=== PATIENT | male | born 1935 | race Caucasian/White ===

== ENCOUNTER 2017-03-20 15:10 | Emergency (ER) | payer MEDICARE ==
[~2017-03-20] VITALS: Ht 182.9 cm; Wt 96.0 kg
[~2017-03-20 15:10] MED LIST: APIX5TAB PO; BUME2TAB PO; CORE25TA PO; LOSA50TA PO; OMEP20CA5 PO
[2017-03-20 15:13] VITALS: BP 139/74; PULSE 91; RESP 16; TEMP 99.8; O2SAT 95
[2017-03-20] MEDS ORDERED: BUME2TAB PO (16:08)
[2017-03-20] MEDS ORDERED: OMEP20TA93 PO (16:08)
[2017-03-20] MEDS ORDERED: BENZ1CAP54 PO (16:08)
[2017-03-20] MEDS ORDERED: LOSA50TA PO (16:08)
[2017-03-20] MEDS ORDERED: CARV12.52 PO (16:08)
[2017-03-20] MEDS ORDERED: ACETAMINOPHEN 325 MG TAB PO ONE (16:15)
[2017-03-20] MEDS ORDERED: SODIUM CHLOR 0.9% 1000 ML INJ 1,000 ML IV ONE (16:15)
[2017-03-20] MEDS ORDERED: ONDANSETRON HCL 4 MG/2 ML VIAL IV PUSH ONE (16:15)
--- NOTE | 2017-03-20 16:54 | RADRPT ---
EXAM DATE/TIME: 03/20/2017 16:23 [facility] COMPARISON: No previous studies available for comparison. INDICATIONS : Flu like symptoms- Ear ache. MEDICAL HISTORY : None. SURGICAL HISTORY : Pacemaker. ENCOUNTER: Initial ACUITY: 4 - 6 days PAIN SCORE: 0/10 LOCATION: Bilateral chest FINDINGS: Single AP view of the chest. AICD in place. The lungs are clear. Cardiac silhouette upper limits of n ormal. No evidence of pleural effusion or pneumothorax. CONCLUSION: Cardiac silhouette upper limits of normal. No acute cardiopulmonary disease ident ified. Roger Patterson MD on March 20, 2017 at 16:52 Board Certified Radiologist. This report was verified electronically.
[2017-03-20 16:59] LABS: AUTOMATED NEUTROPHIL # 6.4 TH/MM3 (1.8-7.7); BASOPHIL # 0.1 TH/MM3 (0-0.2); BASOPHIL % 1.9 % (0.0-2.0); EOSINOPHIL % 0.4 % (0.0-4.0); HEMATOCRIT 43.8 % (39.0-51.0); HEMOGLOBIN 13.8 GM/DL (13.0-17.0); LYMPH % 3.9 % (9.0-44.0); LYMPHOCYTE # 0.3 TH/MM3 (1.0-4.8); MEAN CELL VOLUME 90.7 FL (80.0-100.0); MEAN CORPUSCULAR HEMOGLOBIN 28.7 PG (27.0-34.0); MEAN CORPUSCULAR HGB CONC 31.6 % (32.0-36.0); MEAN PLATELET VOLUME 10.8 FL (7.0-11.0); MONO % 11.1 % (0.0-8.0); MONOCYTE # 0.9 TH/MM3 (0-0.9); NEUT % 82.7 % (16.0-70.0); PLATELET COUNT 110 TH/MM3 (150-450); RED BLOOD COUNT 4.83 MIL/MM3 (4.50-5.90); WHITE BLOOD COUNT 7.8 TH/MM3 (4.0-11.0)
[2017-03-20 17:15] LABS: CHLORIDE 103 MEQ/L (98-107); SODIUM (NA) 140 MEQ/L (136-145)
[2017-03-20 17:19] LABS: CALCIUM 8.8 MG/DL (8.5-10.1)
[2017-03-20 17:20] LABS: ALBUMIN 3.8 GM/DL (3.4-5.0); BICARBONATE 29.5 MEQ/L (21.0-32.0); BLOOD UREA NITROGEN 18 MG/DL (7-18)
[2017-03-20 17:21] LABS: GLUCOSE,RANDOM 114 MG/DL (74-106)
[2017-03-20 17:23] LABS: ALT (GPT) 20 U/L (12-78); AST (GOT) 20 U/L (15-37); GLOMERULAR FILTRATION RATE 71 ML/MIN (>89)
[2017-03-20 17:24] LABS: TOTAL BILIRUBIN ADULT 1.2 MG/DL (0.2-1.0); TOTAL PROTEIN 7.9 GM/DL (6.4-8.2)
[2017-03-20 17:26] LABS: ALKALINE PHOSPHATASE 81 U/L (45-117)
[2017-03-20] MEDS ORDERED: PSEU1TAB17 PO (17:28)
[2017-03-20] MEDS ORDERED: TUSSSUS2 PO (17:28)
--- NOTE | 2017-03-20 17:28 | PD ---
HPI . Earache Chief Complaint: ENT Complaint Time Seen by Provider: 15:55 Travel History International Travel<30 days: No Contact w/Intl Traveler<30days: No Traveled to known affect area: No History of Present Illness HPI History is obtained from the patient and his . He presents complaining with a one-week history of cold. He states that he developed right ear pain today along with a subjective fever. He states that he has been vomiting and that he has been coughing and that he is too weak to walk. He subsequently presented to us for evaluation treatment. He has been taking an over-the- counter antihistamine for the last week without relief of his symptoms. PFSH Past Medical History Asthma: No Atrial Fibrillation: Yes (INTERMITTENT) Anxiety: No Depression: No Heart Rhythm Problems: Yes Cancer: Yes (skin cancers) Cardiovascular Problems: Yes (AFIB, CARDIAC ARREST YEARS AGO, NOW HAS PACER/ AICD) High Cholesterol: Yes (ON MEDICATION) Chest Pain: No Congestive Heart Failure: No COPD: No Cerebrovascular Accident: No Diabetes: No Endocrine: No Gastrointestinal Disorders: Yes (GALLSTONES, ACID REFLUX) GERD: Yes Glaucoma: No Genitourinary: No Headaches: Yes Hepatitis: No Hiatal Hernia: No Hypertension: Yes Immune Disorder: No Medical other: No Musculoskeletal: Yes (ARTHRITIS, BACK PAIN) Neurologic: No Psychiatric: No Reproductive: No Respiratory: No Migraines: No Sleep Apnea: No Thyroid Disease: No Ulcer: No PNEUMOCCOCAL Vaccine (Year): 1 Past Surgical History Abdominal Surgery: No AICD: Yes (MEDTRONIC) Cardiac Surgery: Yes (CARDIAC CATH 05/05/11) Ear Surgery: No Endocrine Surgery: No Eye Surgery: Yes (gabrielle cataract surgery) Genitourinary Surgery: No Joint Replacement: Yes (LT PARTIAL KNEE) Neurologic Surgery: No Oral Surgery: Yes (TONSILLECTOMY) Pacemaker: Yes (MEDTRONIC) Thoracic Surgery: No Other Surgery: Yes (PACEMAKER 05/05/11) Social History Alcohol Use: Yes (occ) Tobacco Use: No (quit 25 years) Substance Use: No Allergies-Medications (Allergen,Severity, Reaction): Coded Allergies: No Known Allergies (Verified Adverse Reaction, Unknown, 03/20/17) Reported Meds & Prescriptions Reported Meds & Active Scripts Active Tussionex Pennkinetic Ext 12 HR Liq (Hydrocodone-Chlorpheniramine 12 HR Liq) 10- 8 Mg/5 Ml Susp 5 Ml PO Q12H PRN Pseudoephedrine ER 12 HR (Pseudoephedrine HCl) 120 Mg Tab 120 Mg PO BID Reported Benzonatate 100 Mg Cap 100 Mg PO TID PRN Bumetanide 2 Mg Tab 2 Mg PO DAILY Omeprazole 20 Mg Tab 20 Mg PO DAILY Carvedilol 12.5 Mg Tab 12.5 Mg PO BID Losartan (Losartan Potassium) 50 Mg Tab 50 Mg PO DAILY Review of Systems Except as stated in HPI: all other systems reviewed are Neg General / Constitutional: Positive: Fever, Chills HENT: Positive: Congestion, Earache Respiratory: Positive: Cough Gastrointestinal: Positive: Nausea, Vomiting Neurologic: Positive: Weakness Physical Exam Narrative Vital Signs Date Time Temp Pulse Resp B/P (MAP) Pulse Ox O2 Delivery O2 Flow Rate FiO2 03/20/17 15:13 99.8 91 16 139/74 (95) 95 GENERAL: Awake and alert. He does not look like he feels very well. SKIN: warm/dry. Pale. HEAD: Normocephalic. Atraumatic. EYES: Pupils equal and round. No scleral icterus. No injection or drainage. ENT: No nasal bleeding or discharge. Mucous membranes pink and moist. TMs are shiny mckeon with good light reflexes bilaterally. Oropharynx has no erythema. NECK: Trachea midline. Full range of motion without pain. No cervical lymphadenopathy. CARDIOVASCULAR: Regular rate and rhythm. Heart sounds are normal. RESPIRATORY: No accessory muscle use. Clear to auscultation. Breath sounds equal bilaterally. GASTROINTESTINAL: Abdomen soft. Nontender. Bowel sounds present. Nondistended. MUSCULOSKELETAL: No obvious deformities. NEUROLOGICAL: Awake and alert. No obvious cranial nerve deficits. Motor grossly within normal limits. Normal speech. PSYCHIATRIC: Appropriate mood and affect; insight and judgment normal. Data Data Last Documented VS Vital Signs Date Time Temp Pulse Resp B/P (MAP) Pulse Ox O2 Delivery O2 Flow Rate FiO2 03/20/17 15:13 99.8 91 16 139/74 (95) 95 Orders Orders Sepsis Workup Initiated (03/20/17 ) Complete Blood Count With Diff (03/20/17 16:11) Comprehensive Metabolic Panel (03/20/17 16:11) Lactic Acid Sepsis Protocol (03/20/17 16:11) Influenzae A/B Antigen (03/20/17 16:11) Blood Culture (03/20/17 16:11) Chest, Single Ap (03/20/17 16:11) Iv Access Insert/Monitor (03/20/17 16:11) Acetaminophen (Tylenol) (03/20/17 16:15) Ondansetron Inj (Zofran Inj) (03/20/17 16:15) Sodium Chlor 0.9% 1000 Ml Inj (Ns 1000 M (03/20/17 16:15) Labs Laboratory Tests Test 03/20/17 16:25 White Blood Count 7.8 TH/MM3 Red Blood Count 4.83 MIL/MM3 Hemoglobin 13.8 GM/DL Hematocrit 43.8 % Mean Corpuscular Volume 90.7 FL Mean Corpuscular Hemoglobin 28.7 PG Mean Corpuscular Hemoglobin Concent 31.6 % Red Cell Distribution Width 15.0 % Platelet Count 110 TH/MM3 Mean Platelet Volume 10.8 FL Neutrophils (%) (Auto) 82.7 % Lymphocytes (%) (Auto) 3.9 % Monocytes (%) (Auto) 11.1 % Eosinophils (%) (Auto) 0.4 % Basophils (%) (Auto) 1.9 % Neutrophils # (Auto) 6.4 TH/MM3 Lymphocytes # (Auto) 0.3 TH/MM3 Monocytes # (Auto) 0.9 TH/MM3 Eosinophils # (Auto) 0.0 TH/MM3 Basophils # (Auto) 0.1 TH/MM3 CBC Comment DIFF FINAL Differential Comment Blood Urea Nitrogen 18 MG/DL Creatinine 1.00 MG/DL Random Glucose 114 MG/DL Total Protein 7.9 GM/DL Albumin 3.8 GM/DL Calcium Level 8.8 MG/DL Alkaline Phosphatase 81 U/L Aspartate Amino Transf (AST/SGOT) 20 U/L Alanine Aminotransferase (ALT/SGPT) 20 U/L Total Bilirubin 1.2 MG/DL Sodium Level 140 MEQ/L Potassium Level 4.0 MEQ/L Chloride Level 103 MEQ/L Carbon Dioxide Level 29.5 MEQ/L Anion Gap 8 MEQ/L Estimat Glomerular Filtration Rate 71 ML/MIN Lactic Acid Level 1.7 mmol/L MDM Medical Decision Making Medical Screen Exam Complete: Yes Emergency Medical Condition: Yes Medical Record Reviewed: Yes (medical history is significant for hypertension, hyperlipidemia, previous OR, pacemaker and skin cancer) Differential Diagnosis Differential diagnosis of fever includes but is not limited to viral illness, strep throat, otitis media, pneumonia, sepsis, UTI Narrative Course This is an elderly patient who presents with subjective fever, cold symptoms and a right earache. He is also stating that he has been vomiting and that he is so weak that he cannot walk. Because of his advanced age and these complaints, a septic workup was initiated. He is being given a liter of IV fluids. He does not meet SIRS criteria. Last Impressions Chest X-Ray 03/20/17 1611 Signed Impressions: Service Date/Time: Monday, March 20, 2017 16:23 - CONCLUSION: Cardiac silhouette upper limits of normal. No acute cardiopulmonary disease identified. Roger Patterson MD The chest x-ray was independently viewed by me. Flu screen is negative. CBC & BMP Diagram 03/20/17 16:25 Total Protein 7.9, Albumin 3.8, Calcium Level 8.8, Alkaline Phosphatase 81, Aspartate Amino Transf (AST/SGOT) 20, Alanine Aminotransferase (ALT/SGPT) 20, Total Bilirubin 1.2 H LA 1.7 Last Impressions Chest X-Ray 03/20/17 1611 Signed Impressions: Service Date/Time: Monday, March 20, 2017 16:23 - CONCLUSION: Cardiac silhouette upper limits of normal. No acute cardiopulmonary disease identified. Roger Patterson MD I now feel comfortable letting this man go home. It looks like he has a viral illness. Diagnosis Primary Impression: Viral syndrome Patient Instructions: General Instructions, Viral Syndrome (DC) Med/Other Pt SpecificInfo: Prescription(s) given Scripts Hydrocodone-Chlorpheniramine 12 HR Liq (Tussionex Pennkinetic Ext 12 HR Liq) 10- 8 Mg/5 Ml Susp 5 ML PO Q12H Y for COUGH AND/OR COLD SYMPTOMS, #60 ML 0 Refills Prov: Adriana Galvan MD 03/20/17 Pseudoephedrine ER 12 HR (Pseudoephedrine ER 12 HR) 120 Mg Tab 120 MG PO BID for Decongestant, #60 TAB 0 Refills Prov: Adriana Galvan MD 03/20/17 Disposition: DISCHARGE HOME Condition: Stable Adriana Galvan MD Mar 20, 2017 17:28
[2017-03-20 17:42] VITALS: BP 145/81
[2017-03-21] MEDS ORDERED: FURO1TAB60 PO (11:49)
== END 2017-03-20 18:10 | disposition home or self-care (01) ==
LOC: PHED 15:10
DX: B34.9 Viral infection, unspecified (principal); I48.91 Unspecified atrial fibrillation; E78.00 Pure hypercholesterolemia, unspecified; K21.9 Gastro-esophageal reflux disease without esophagitis; I10 Essential (primary) hypertension; M19.90 Unspecified osteoarthritis, unspecified site; Z79.899 Other long term (current) drug therapy; Z87.891 Personal history of nicotine dependence
CPT/HCPCS: 71010; 80053; 83605; 85025; 87040; 87804; 96361; 96374; 99284; J2405; J7030

== ENCOUNTER 2017-03-21 11:26 | Observation (INO) | payer MEDICARE ==
[~2017-03-21] VITALS: Ht 182.9 cm; Wt 97.0 kg
[2017-03-21] VITALS (8 sets, daily range): BP systolic 109–163; BP diastolic 56–87; PULSE 80–93; RESP 16–20; TEMP 97–102.1; O2SAT 89–99
[~2017-03-21 11:26] MED LIST changes: -APIX5TAB PO; +BENZ1CAP54 PO; +CARV12.52 PO; -CORE25TA PO; -OMEP20CA5 PO; +OMEP20TA93 PO; +PSEU1TAB17 PO; +TUSSSUS2 PO
[2017-03-21] MEDS ORDERED: ACETAMINOPHEN 325 MG TAB PO ONE (11:30)
[2017-03-21] MEDS ORDERED: RESP: ALBUTEROL 2.5 MG/IPRATROPIUM 0.5 MG NEB (SCH) INH ONE (11:30)
--- NOTE | 2017-03-21 11:34 | PD ---
HPI Chief Complaint: Cough, weakness Time Seen by Provider: 11:27 Travel History International Travel<30 days: No Contact w/Intl Traveler<30days: No Traveled to known affect area: No History of Present Illness HPI 81-year-old male with history of hypertension, hypercholesterolemia, CHF, A. fib on Eliquis, seen in the emergency department yesterday for upper respiratory symptoms and diagnosed with a viral syndrome, returns today for evaluation of generalized weakness, leg weakness, cough, and generalized malaise. Symptoms have been going on for a couple of days, worse today. He denies unilateral weakness. No chest pain or dyspnea. No abdominal pain. No back pain. States that he tried to get out of his chair today and fell to the ground. He did not hit his head or injure himself during this fall. He has been having a cough productive of yellowish sputum. No hemoptysis. He feels as though he may have a fever. He had one episode of vomiting yesterday. No diarrhea. PFSH Past Medical History Asthma: No Atrial Fibrillation: Yes (INTERMITTENT) Anxiety: No Depression: No Heart Rhythm Problems: Yes Cancer: Yes (skin cancers) Cardiovascular Problems: Yes (AFIB, CARDIAC ARREST YEARS AGO, NOW HAS PACER/ AICD) High Cholesterol: Yes (ON MEDICATION) Chest Pain: No Congestive Heart Failure: No COPD: No Cerebrovascular Accident: No Diabetes: No Endocrine: No Gastrointestinal Disorders: Yes (GALLSTONES, ACID REFLUX) GERD: Yes Glaucoma: No Genitourinary: No Headaches: Yes Hepatitis: No Hiatal Hernia: No Hypertension: Yes Immune Disorder: No Musculoskeletal: Yes (ARTHRITIS, BACK PAIN) Neurologic: No Psychiatric: No Reproductive: No Respiratory: No Migraines: No Sleep Apnea: No Thyroid Disease: No Ulcer: No PNEUMOCCOCAL Vaccine (Year): 1 Past Surgical History Abdominal Surgery: No AICD: Yes (MEDTRONIC) Cardiac Surgery: Yes (CARDIAC CATH 05/05/11) Ear Surgery: No Endocrine Surgery: No Eye Surgery: Yes (gabrielle cataract surgery) Genitourinary Surgery: No Joint Replacement: Yes (LT PARTIAL KNEE) Neurologic Surgery: No Oral Surgery: Yes (TONSILLECTOMY) Pacemaker: Yes (MEDTRONIC) Thoracic Surgery: No Other Surgery: Yes (PACEMAKER 05/05/11) Social History Alcohol Use: Yes (occ) Tobacco Use: No (quit 25 years) Substance Use: No Allergies-Medications (Allergen,Severity, Reaction): Coded Allergies: No Known Allergies (Verified Adverse Reaction, Unknown, 03/21/17) Reported Meds & Prescriptions Reported Meds & Active Scripts Active Tussionex Pennkinetic Ext 12 HR Liq (Hydrocodone-Chlorpheniramine 12 HR Liq) 10- 8 Mg/5 Ml Susp 5 Ml PO Q12H PRN Pseudoephedrine ER 12 HR (Pseudoephedrine HCl) 120 Mg Tab 120 Mg PO BID Reported Lasix (Furosemide) 40 Mg Tab 40 Mg PO DAILY Benzonatate 100 Mg Cap 100 Mg PO TID PRN Bumetanide 2 Mg Tab 2 Mg PO DAILY Omeprazole 20 Mg Tab 20 Mg PO DAILY Carvedilol 12.5 Mg Tab 12.5 Mg PO BID Losartan (Losartan Potassium) 50 Mg Tab 50 Mg PO DAILY Review of Systems Except as stated in HPI: all other systems reviewed are Neg Physical Exam Narrative GENERAL: Pleasant, well-developed, well-nourished, awake, alert, no apparent distress. SKIN: Focused skin assessment warm/dry. No rashes. HEAD: Atraumatic. Normocephalic. EYES: Pupils equal and round. No scleral icterus. No injection or drainage. ENT: No nasal bleeding or discharge. Mucous membranes pink and moist. NECK: Trachea midline. No JVD. No nuchal rigidity. CARDIOVASCULAR: Regular rate and rhythm. RESPIRATORY: No accessory muscle use. Slight in inspiratory and expiratory wheezes bilaterally with coarse breath sounds on the left. Breath sounds equal bilaterally. GASTROINTESTINAL: Abdomen soft, non-tender, nondistended. MUSCULOSKELETAL: No obvious deformities. No clubbing. No cyanosis. Moderate bilateral lower extremity edema from foot to knee. Normal ROM and strength in all 4 extremities. NEUROLOGICAL: Awake and alert. No obvious cranial nerve deficits. Motor grossly within normal limits. Normal speech. PSYCHIATRIC: Appropriate mood and affect; insight and judgment normal. Data Data Last Documented VS Vital Signs Date Time Temp Pulse Resp B/P (MAP) Pulse Ox O2 Delivery O2 Flow Rate FiO2 03/21/17 11:31 95 Nasal Cannula 2.00 03/21/17 11:29 102.1 89 16 109/56 (73) Orders Orders Sepsis Workup Initiated (03/21/17 ) Complete Blood Count With Diff (03/21/17 11:28) Comprehensive Metabolic Panel (03/21/17 11:28) Prothrombin Time / Inr (Pt) (03/21/17 11:28) Act Partial Throm Time (Ptt) (03/21/17 11:28) Lactic Acid Sepsis Protocol (03/21/17 11:28) Urinalysis - C+S If Indicated (03/21/17 11:28) Influenzae A/B Antigen (03/21/17 11:28) Blood Culture (03/21/17 11:28) Chest, Single Ap (03/21/17 11:28) Ecg Monitoring (03/21/17 11:28) Iv Access Insert/Monitor (03/21/17 11:28) Oximetry (03/21/17 11:28) Oxygen Administration (03/21/17 11:28) Acetaminophen (Tylenol) (03/21/17 11:30) Albuterol-Ipratropium Neb (Duoneb Neb) (03/21/17 11:30) B-Type Natriuretic Peptide (03/21/17 11:49) Oseltamivir (Tamiflu) (03/21/17 12:15) Methylprednisolone So Succ Inj (Solumedr (03/21/17 12:45) Admit Order (Ed Use Only) (03/21/17 12:34) Labs Laboratory Tests Test 03/21/17 11:40 White Blood Count 8.7 TH/MM3 Red Blood Count 4.16 MIL/MM3 Hemoglobin 11.8 GM/DL Hematocrit 37.0 % Mean Corpuscular Volume 88.9 FL Mean Corpuscular Hemoglobin 28.4 PG Mean Corpuscular Hemoglobin Concent 31.9 % Red Cell Distribution Width 14.7 % Platelet Count 88 TH/MM3 Mean Platelet Volume 9.2 FL Neutrophils (%) (Auto) 79.2 % Lymphocytes (%) (Auto) 4.4 % Monocytes (%) (Auto) 13.3 % Eosinophils (%) (Auto) 0.0 % Basophils (%) (Auto) 3.1 % Neutrophils # (Auto) 6.8 TH/MM3 Lymphocytes # (Auto) 0.4 TH/MM3 Monocytes # (Auto) 1.2 TH/MM3 Eosinophils # (Auto) 0.0 TH/MM3 Basophils # (Auto) 0.3 TH/MM3 CBC Comment AUTO DIFF Differential Comment AUTO DIFF CONFIRMED Platelet Estimate LOW Platelet Morphology Comment NORMAL Prothrombin Time 11.7 SEC Prothromb Time International Ratio 1.2 RATIO Activated Partial Thromboplast Time 28.4 SEC Blood Urea Nitrogen 25 MG/DL Creatinine 1.10 MG/DL Random Glucose 110 MG/DL Total Protein 6.7 GM/DL Albumin 3.1 GM/DL Calcium Level 7.5 MG/DL Alkaline Phosphatase 64 U/L Aspartate Amino Transf (AST/SGOT) 26 U/L Alanine Aminotransferase (ALT/SGPT) 19 U/L Total Bilirubin 0.8 MG/DL Sodium Level 139 MEQ/L Potassium Level 3.8 MEQ/L Chloride Level 105 MEQ/L Carbon Dioxide Level 26.8 MEQ/L Anion Gap 7 MEQ/L Estimat Glomerular Filtration Rate 64 ML/MIN Lactic Acid Level 1.3 mmol/L B-Type Natriuretic Peptide 537 PG/ML MDM Medical Decision Making Medical Screen Exam Complete: Yes Emergency Medical Condition: Yes Medical Record Reviewed: Yes Differential Diagnosis Sepsis, pneumonia, URI, viral illness, influenza Narrative Course Initial vital signs show heart rate 89, blood pressure 109/56, pulse ox 89% on room air, 95% on 2 L nasal cannula, rectal temp of 102.1F. CBC: WBC 8.7, hemoglobin 11.8, hematocrit 37, platelets 88, neutrophils 79%, lymphocytes 4.4%, monocytes 13.3%. CMP Chest x-ray: CONCLUSION: Compensated cardiomegaly with minimal parenchymal changes left base. Defibrillator Influenza A is positive. Hemoglobin dropped 2 points from yesterday. Patient is on Eliquis for A. fib. Stool was checked and is heme-negative and brown. Patient will be started on Tamiflu. He was given 1 DuoNeb treatment and his slight wheezing has resolved. He is in no respiratory distress. Given his age , generalized weakness, and inability for his to take care of him because of his weakness, the patient will be admitted for further treatment and evaluation. Patient and the patient's were made aware of findings and plan. Case discussed with [facility] hospitalist Dr. Wolff who will admit the patient to his service. Diagnosis Primary Impression: Influenza A Additional Impressions: Generalized weakness Hypoxia Admitting Information Admitting Physician Requests: Admit Marin Celis MD Mar 21, 2017 11:34
--- NOTE | 2017-03-21 11:47 | RADRPT ---
EXAM DATE/TIME: 03/21/2017 11:34 [facility] COMPARISON: CHEST SINGLE AP, March 20, 2017, 16:23. INDICATIONS : Cough, fever, weak MEDICAL HISTORY : Myocardial infarction. SURGICAL HISTORY : Pacemaker. ENCOUNTER: Initial ACUITY: 4 - 6 days PAIN SCORE: 0/10 LOCATION: Bilateral chest FINDINGS: Multiple changes left base. Right lung clear. The heart is minimally enlarged. The pulmonary vascul arity is normal. There is no evidence for infiltrate or failure. Defibrillator implant on the left. The portion of the bony skeleton visualized is unremarkable. CONCLUSION: Compensated cardiomegaly with minimal parenchymal changes left base. Defibrillator Board Certified Radiologist. This report was verified electronically.
[2017-03-21] MEDS ORDERED: FURO1TAB60 PO (11:49)
[2017-03-21 11:51] LABS: AUTOMATED NEUTROPHIL # 6.8 TH/MM3 (1.8-7.7); BASOPHIL # 0.3 TH/MM3 (0-0.2); BASOPHIL % 3.1 % (0.0-2.0); HEMOGLOBIN 11.8 GM/DL (13.0-17.0); LYMPH % 4.4 % (9.0-44.0); LYMPHOCYTE # 0.4 TH/MM3 (1.0-4.8); MEAN CELL VOLUME 88.9 FL (80.0-100.0); MEAN CORPUSCULAR HEMOGLOBIN 28.4 PG (27.0-34.0); MEAN CORPUSCULAR HGB CONC 31.9 % (32.0-36.0); MEAN PLATELET VOLUME 9.2 FL (7.0-11.0); MONO % 13.3 % (0.0-8.0); MONOCYTE # 1.2 TH/MM3 (0-0.9); NEUT % 79.2 % (16.0-70.0); PLATELET COUNT 88 TH/MM3 (150-450); RED BLOOD COUNT 4.16 MIL/MM3 (4.50-5.90); RED CELL DISTRIBUTION WIDTH 14.7 % (11.6-17.2); WHITE BLOOD COUNT 8.7 TH/MM3 (4.0-11.0)
[2017-03-21 11:59] LABS: CHLORIDE 105 MEQ/L (98-107); SODIUM (NA) 139 MEQ/L (136-145)
[2017-03-21 12:03] LABS: INTERNATIONAL NORMALIZED RATIO 1.2 RATIO; PROTHROMBIN TIME - PATIENT 11.7 SEC (9.8-11.6)
[2017-03-21] MEDS ORDERED: OSELTAMIVIR PHOSPHATE 75 MG CAP PO ONE (12:15)
[2017-03-21 12:21] LABS: ALBUMIN 3.1 GM/DL (3.4-5.0); ALKALINE PHOSPHATASE 64 U/L (45-117); ALT (GPT) 19 U/L (12-78); AST (GOT) 26 U/L (15-37); BICARBONATE 26.8 MEQ/L (21.0-32.0); BLOOD UREA NITROGEN 25 MG/DL (7-18); CALCIUM 7.5 MG/DL (8.5-10.1); GLOMERULAR FILTRATION RATE 64 ML/MIN (>89); GLUCOSE,RANDOM 110 MG/DL (74-106); TOTAL BILIRUBIN ADULT 0.8 MG/DL (0.2-1.0); TOTAL PROTEIN 6.7 GM/DL (6.4-8.2)
[2017-03-21] MEDS ORDERED: methylPREDNISolone SOD SUCC 125 MG/2 ML VIAL IV PUSH ONE (12:45)
--- NOTE | 2017-03-21 13:11 | HHI.HP ---
HPI Service [facility] Hospitalists Primary Care Physician Dina Duarte MD Admission Diagnosis influenza A, generalized weakness, hypoxia Chief Complaint: Fever, general weakness, fall Travel History International Travel<30 Days: No Contact w/Intl Traveler <30 Da: No Traveled to Known Affected Are: No Sepsis Criteria SIRS Criteria (2 or more): Temp > 100.9 or < 96.8, Heart rate over 90 Sepsis Criteria (SIRS+source): Infect source susp/known History of Present Illness 81-year-old male with history of hypertension, hypercholesterolemia, CHF, A. fib , who was seen in the emergency department yesterday for upper respiratory symptoms and diagnosed with a viral syndrome, returns today for evaluation of generalized weakness, leg weakness, cough, and generalized malaise with subjective fever. Symptoms have been going on for a couple of days, worse today. He reports that he had some mild cold-like symptoms for approximately one week, but over the last 2 days has developed more chills and subjective fever with increased weakness at home. He denies unilateral weakness. No chest pain or increased dyspnea, but has chronic dyspnea on exertion due to his cardiomyopathy. No abdominal pain. States that he tried to get out of his chair today and fell to the ground. He did not hit his head or injure himself during this fall. No loss of consciousness. He has been having a cough productive of yellowish sputum. No hemoptysis. He had one episode of vomiting yesterday but no coffee ground emesis. No diarrhea. He was reevaluated today in the ER and noted to have some subtle changes in the left lower lung field on x-ray and positive influenza A test. He is a relatively large man and his with whom he lives is quite petite. He reports that he is generally independent of ADLs despite his significant cardiomyopathy, but over the last 2 days become too weak to ambulate around the home without any assistance. Review of Systems Constitutional: COMPLAINS OF: Fatigue, Fever, Chills, Change in appetite Endocrine: DENIES: Heat/cold intolerance, Polydipsia, Polyuria, Polyphagia Ears, nose, mouth, throat: COMPLAINS OF: Ear Pain, DENIES: Tinnitus, Hearing loss, Vertigo, Nasal discharge, Oral lesions, Throat pain, Hoarseness, Running Nose, Epistaxis, Sinus Pain, Toothache, Odynophagia Respiratory: COMPLAINS OF: Cough, Shortness of breath, DENIES: Apneas, Snoring , Wheezing, Hemoptysis, Sputum production Cardiovascular: COMPLAINS OF: Dyspnea on Exertion, Lower Extremity Edema, DENIES: Chest pain, Palpitations, Syncope, PND, Orthopnea, Claudication Gastrointestinal: COMPLAINS OF: Constipation, Nausea, Vomiting, DENIES: Abdominal pain, Black stools, Bloody stools, BRB per rectum, Diarrhea, GERD, Reflux, Difficulty Swallowing, Anorexia, See HPI Musculoskeletal: COMPLAINS OF: Joint pain Hematologic/lymphatic: COMPLAINS OF: Bruising Immunologic/allergic: DENIES: Eczema, Urticaria Neurologic: COMPLAINS OF: Abnormal gait, Poor Balance, DENIES: Headache, Localized weakness, Paresthesias, Seizures, Speech Problems, Tremor Psychiatric: COMPLAINS OF: Anxiety Past Family Social History Past Medical History Afib CHF (EF 10-15% Jan 2015 Echo) HTN Hyperlipidemia Thrombocytopenia (plt ct gen 120-150 range) Pulm HTN PSVT GERD Past Surgical History BCC removal from face Cataract surgery Lt knee arthroplasty T&A Pacer/defib placement Reported Medications Bumex 2mg/d. Coreg 25 mg bid Eliquis 5mg bid Ativan 1 mg/d prn anxiety Losartan 50mg/d Prilosec 20mg/d. 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 Physical Exam Vital Signs Vital Signs Date Time Temp Pulse Resp B/P (MAP) Pulse Ox O2 Delivery O2 Flow Rate FiO2 03/21/17 12:55 98.9 80 16 118/62 (80) 93 Nasal Cannula 2.00 03/21/17 11:31 95 Nasal Cannula 2.00 03/21/17 11:31 95 Nasal Cannula 2.00 03/21/17 11:31 95 Nasal Cannula 2.00 03/21/17 11:29 102.1 89 16 109/56 (73) 89 Physical Exam GENERAL: This is a well-nourished, well-developed patient, in no apparent distress. Alert and oriented. SKIN: Postsurgical changes about nares. Dermatoheliosis. 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 Cool and dry. HEAD: Atraumatic. Normocephalic. No temporal or scalp tenderness. EYES: Pupils equal round and reactive. Extraocular motions intact. No scleral icterus. No injection or drainage. ENT: Nose without bleeding, purulent drainage or septal hematoma. Airway patent. Nasal cannula in place. NECK: Trachea midline. No JVD or lymphadenopathy. Supple, nontender, no meningeal signs. CARDIOVASCULAR: Regular rate and rhythm without gallops or rubs. Distant heart sounds but 2/6 systolic ejection murmur appreciated over the left sternal border. RESPIRATORY: Few expiratory wheezes and coarse breath sounds particularly in right mid lung field. Slight decreased breath sounds in left lower lung field. No fine crackles. GASTROINTESTINAL: Abdomen soft, non-tender, nondistended. No hepato-splenomegaly , or palpable masses. No guarding. MUSCULOSKELETAL: Extremities without clubbing or cyanosis. 2+ edema in feet and ankles bilaterally with slight worsening edema on the left (reportedly due to old basketball injury). No calf tenderness. NEUROLOGICAL: Awake and alert. Cranial nerves II through XII intact. Motor and sensory grossly within normal limits. Five out of 5 muscle strength in all muscle groups. Normal speech. Laboratory Laboratory Tests Test 03/21/17 11:40 White Blood Count 8.7 Red Blood Count 4.16 Hemoglobin 11.8 Hematocrit 37.0 Mean Corpuscular Volume 88.9 Mean Corpuscular Hemoglobin 28.4 Mean Corpuscular Hemoglobin Concent 31.9 Red Cell Distribution Width 14.7 Platelet Count 88 Mean Platelet Volume 9.2 Neutrophils (%) (Auto) 79.2 Lymphocytes (%) (Auto) 4.4 Monocytes (%) (Auto) 13.3 Eosinophils (%) (Auto) 0.0 Basophils (%) (Auto) 3.1 Neutrophils # (Auto) 6.8 Lymphocytes # (Auto) 0.4 Monocytes # (Auto) 1.2 Eosinophils # (Auto) 0.0 Basophils # (Auto) 0.3 CBC Comment AUTO DIFF Differential Comment AUTO DIFF CONFIRMED Platelet Estimate LOW Platelet Morphology Comment NORMAL Prothrombin Time 11.7 Prothromb Time International Ratio 1.2 Activated Partial Thromboplast Time 28.4 Blood Urea Nitrogen 25 Creatinine 1.10 Random Glucose 110 Total Protein 6.7 Albumin 3.1 Calcium Level 7.5 Alkaline Phosphatase 64 Aspartate Amino Transf (AST/SGOT) 26 Alanine Aminotransferase (ALT/SGPT) 19 Total Bilirubin 0.8 Sodium Level 139 Potassium Level 3.8 Chloride Level 105 Carbon Dioxide Level 26.8 Anion Gap 7 Estimat Glomerular Filtration Rate 64 Lactic Acid Level 1.3 B-Type Natriuretic Peptide 537 Date/Time Source Procedure Growth Status 03/21/17 11:45 Blood Peripheral Aerobic Blood Culture Pending Received 03/21/17 11:45 Blood Peripheral Anaerobic Blood Culture Pending Received 03/21/17 11:40 Nasal Washing Influenza Types A,B Antigen (MARIELENA) - Final Positive For Flu A Antigen Complete Result Diagram: 03/21/17 1140 03/21/17 1140 Imaging Last 72 hours Impressions Chest X-Ray 03/21/17 1128 Signed Impressions: Service Date/Time: Tuesday, March 21, 2017 11:34 - CONCLUSION: Compensated cardiomegaly with minimal parenchymal changes left base. Defibrillator Board Certified Radiologist. This report was verified electronically. MD Thomas VTE Risk Assessment Martha VTE Risk Assessment: Mod/High Risk (score >= 2) Caprini Risk Assessment Model Point Value = 1 Point Value = 2 Point Value = 3 Point Value = 5 Age 41-60 Minor surgery BMI > 25 kg/m2 Swollen legs Varicose veins or History of unexplained or recurrent spontaneous Oral contraceptives or hormone replacement Sepsis (< 1 month) Serious lung disease, including pneumonia (< 1 month) Abnormal pulmonary function Acute myocardial infarction Congestive heart failure (< 1 month) History of inflammatory bowel disease Medical patient at bed rest Age 61-74 Arthroscopic surgery Major open surgery (> 45 min) Laparoscopic surgery (> 45 min) Malignancy Confined to bed (> 72 hours) Immobilizing plaster cast Central venous access Age >= 75 History of VTE Family history of VTE Factor V Leiden Prothrombin [id number] Lupus anticoagulant Anticardiolipin antibodies Elevated serum homocysteine Heparin-induced thrombocytopenia Other congenital or acquired thrombophilia Stroke (< 1 month) Elective arthroplasty Hip, pelvis, or leg fracture Acute spinal cord injury (< 1 month) Prophylaxis Regimen Total Risk Factor Score Risk Level Prophylaxis Regimen 0-1 Low Early ambulation 2 Moderate Order ONE of the following: *Sequential Compression Device (SCD) *Heparin 5000 units SQ BID 3-4 Higher Order ONE of the following medications: *Heparin 5000 units SQ TID *Enoxaparin/Lovenox 40 mg SQ daily (WT < 150 kg, CrCl > 30 mL/min) *Enoxaparin/Lovenox 30 mg SQ daily (WT < 150 kg, CrCl > 10-29 mL/min) *Enoxaparin/Lovenox 30 mg SQ BID (WT < 150 kg, CrCl > 30 mL/min) AND/OR *Sequential Compression Device (SCD) 5 or more Highest Order ONE of the following medications: *Heparin 5000 units SQ TID (Preferred with Epidurals) *Enoxaparin/Lovenox 40 mg SQ daily (WT < 150 kg, CrCl > 30 mL/min) *Enoxaparin/Lovenox 30 mg SQ daily (WT < 150 kg, CrCl > 10-29 mL/min) *Enoxaparin/Lovenox 30 mg SQ BID (WT < 150 kg, CrCl > 30 mL/min) AND *Sequential Compression Device (SCD) Assessment and Plan Problem List: (1) Influenza A ICD Codes: J10.1 - Influenza due to other identified influenza virus with other respiratory manifestations Status: Acute Plan: Likely had mild cold virus prior to current flu infection. We'll continue Tamiflu and supportive care. We'll follow his respiratory status and fever curve in particular. Possible early pneumonic infiltrate versus pneumonitis on chest x-ray. (2) Hypoxia ICD Codes: R09.02 - Hypoxemia Status: Acute Plan: responded well to supplemental oxygen via [place] Possible early infiltrative changes on CXR...possibly viral pneumonitis vs secondary pneumonia. Will monitor closely and have low threshold for initiating abx. Pt will be on Antiviral agent and steroid. Blood cltx negative from 03/20 and lactic acid wnl. (3) Generalized weakness ICD Codes: R53.1 - Weakness Status: Acute Plan: Likely secondary to Flu and multiple comorbid conditions. Cautiously hydrate and have PT see pt (4) Afib ICD Codes: I48.91 - Unspecified atrial fibrillation Status: Chronic Plan: rate has been controlled. Pt on Eliquis. will eval dose of Eliquis. Drop in Hb may be a/w fluid administration at prior ER visit. Will follow H/H and monitor for signs of bleeding. (5) Cardiomyopathy ICD Codes: I42.9 - Cardiomyopathy, unspecified Status: Chronic Plan: EF 10-15% per Jan 2015 Echo. Pacer/defib device in place. BNP minimally elevated. (6) Thrombocytopenia ICD Codes: D69.6 - Thrombocytopenia, unspecified Status: Chronic Plan: platelet count generally in 120-150 range. will monitor for signs of bleeding and follow CBC. Code Status full Discussed Condition With Patient and ER provider Jonathan Wolff MD PhD Mar 21, 2017 13:11
[2017-03-21] MEDS ORDERED: RESP: ALBUTEROL 2.5 MG/IPRATROPIUM 0.5 MG NEB (PRN) NEB (13:15)
[2017-03-21] MEDS ORDERED: NS + KCL 20 MEQ INJ 1,000 ML IV SCH (13:15)
[2017-03-21] MEDS ORDERED: DOCUSATE SODIUM 100 MG CAP PO ONE (15:30)
[2017-03-21] MEDS ORDERED: ACETAMINOPHEN 500 MG CPLT PO PRN (15:30)
[2017-03-21] MEDS ORDERED: MAGNESIUM HYDROXIDE SUSP 30 ML CUP PO ONE (15:30)
[2017-03-21 17:09] LABS: BILIRUBIN, URINE NEG (NEG); BLOOD, URINE TRACE (NEG); GLUCOSE,URINE NEG (NEG); KETONE, URINE TRACE mg/dL (NEG); NITRITE,URINE NEG (NEG); PH, URINE 5.5 (5.0-8.5); URINE LEUKOCYTE ESTERASE NEG (NEG)
[2017-03-21 17:14] LABS: URINE COLOR YELLOW (YELLW/STRAW)
[2017-03-21 17:16] LABS: SPERM, URINE OCC; WBC, URINE 0-2 /hpf (0-5)
[2017-03-21] MEDS: BUMETANIDE 1 MG TAB PO SCH (17:47)
[2017-03-21] MEDS: CARVEDILOL 12.5 MG TAB PO SCH (21:30)
[2017-03-21] MEDS: OSELTAMIVIR PHOSPHATE 75 MG CAP PO SCH (21:31)
[2017-03-22] VITALS (9 sets, daily range): BP systolic 128–170; BP diastolic 78–94; PULSE 78–94; RESP 17–20; TEMP 92.1–98; O2SAT 93–98
[2017-03-22] MEDS: methylPREDNISolone SOD SUCC 40 MG/1 ML VIAL IV PUSH SCH ×2 (00:41→13:30)
[2017-03-22] MEDS: BENZONATATE 100 MG CAP PO PRN (00:48)
[2017-03-22 06:59] LABS: AUTOMATED NEUTROPHIL # 9.4 TH/MM3 (1.8-7.7); BASOPHIL % 0.1 % (0.0-2.0); EOSINOPHIL % 0.1 % (0.0-4.0); HEMATOCRIT 37.5 % (39.0-51.0); HEMOGLOBIN 11.9 GM/DL (13.0-17.0); LYMPH % 5.5 % (9.0-44.0); LYMPHOCYTE # 0.6 TH/MM3 (1.0-4.8); MEAN CELL VOLUME 91.2 FL (80.0-100.0); MEAN CORPUSCULAR HGB CONC 31.8 % (32.0-36.0); MEAN PLATELET VOLUME 10.2 FL (7.0-11.0); MONO % 4.8 % (0.0-8.0); MONOCYTE # 0.5 TH/MM3 (0-0.9); NEUT % 89.5 % (16.0-70.0); PLATELET COUNT 87 TH/MM3 (150-450); RED BLOOD COUNT 4.11 MIL/MM3 (4.50-5.90); RED CELL DISTRIBUTION WIDTH 15.2 % (11.6-17.2); WHITE BLOOD COUNT 10.5 TH/MM3 (4.0-11.0)
[2017-03-22 07:05] LABS: CHLORIDE 105 MEQ/L (98-107); SODIUM (NA) 141 MEQ/L (136-145)
[2017-03-22 07:10] LABS: ALBUMIN 3.1 GM/DL (3.4-5.0); BICARBONATE 27.1 MEQ/L (21.0-32.0); CALCIUM 7.7 MG/DL (8.5-10.1); GLUCOSE,RANDOM 125 MG/DL (74-106)
[2017-03-22 07:11] LABS: BLOOD UREA NITROGEN 27 MG/DL (7-18)
[2017-03-22 07:13] LABS: ALT (GPT) 21 U/L (12-78); AST (GOT) 32 U/L (15-37)
[2017-03-22 07:14] LABS: CREATININE 0.89 MG/DL (0.60-1.30); GLOMERULAR FILTRATION RATE 82 ML/MIN (>89)
[2017-03-22 07:15] LABS: TOTAL BILIRUBIN ADULT 0.7 MG/DL (0.2-1.0); TOTAL PROTEIN 6.8 GM/DL (6.4-8.2)
[2017-03-22 07:16] LABS: ALKALINE PHOSPHATASE 62 U/L (45-117)
--- NOTE | 2017-03-22 07:34 | HHI.PR ---
Subjective Remarks Feeling better today. Still with cough but minimal phlegm production. No more fever. No hemoptysis. Feels a bit stronger. Objective Vitals Vital Signs Date Time Temp Pulse Resp B/P (MAP) Pulse Ox O2 Delivery O2 Flow Rate FiO2 03/22/17 04:00 96.2 86 18 162/94 (116) 95 03/22/17 00:00 96.6 85 18 138/88 (105) 93 03/21/17 22:00 83 03/21/17 20:00 97.0 93 20 163/87 (112) 97 03/21/17 19:55 99 Nasal Cannula 2.00 03/21/17 17:00 83 03/21/17 16:00 98.5 88 20 141/78 (99) 97 03/21/17 14:13 03/21/17 12:55 98.9 80 16 118/62 (80) 93 Nasal Cannula 2.00 03/21/17 11:31 95 Nasal Cannula 2.00 03/21/17 11:31 95 Nasal Cannula 2.00 03/21/17 11:31 95 Nasal Cannula 2.00 03/21/17 11:29 102.1 89 16 109/56 (73) 89 GENERAL: No acute distress, alert and oriented. Pleasant. Cooperative with exam. SKIN: Warm and dry. AK versus early Scc on scalp. HEAD: Normocephalic. EYES: No scleral icterus. No injection or drainage. NECK: Supple, trachea midline. No JVD or lymphadenopathy. CARDIOVASCULAR: Regular rate and rhythm without gallops or rubs. Distant heart sounds. Soft 1/6 systolic ejection murmur at left sternal border. RESPIRATORY: Breath sounds equal bilaterally. Occasional expiratory wheeze but good air movement. Decreased bronchovesicular sounds today. GASTROINTESTINAL: Abdomen soft, non-tender, nondistended. Bowel sounds normal. MUSCULOSKELETAL: No cyanosis. 1+ edema bilateral feet and distal lower extremities. BACK: No CVA tenderness. Result Diagram: 03/22/17 0550 03/22/17 0550 Imaging Last 72 hours Impressions Chest X-Ray 03/21/17 1128 Signed Impressions: Service Date/Time: Tuesday, March 21, 2017 11:34 - CONCLUSION: Compensated cardiomegaly with minimal parenchymal changes left base. Defibrillator Board Certified Radiologist. This report was verified electronically. Urinary Catheter: No Vascular Central Line Catheter: No A/P Problem List: (1) Influenza A ICD Codes: J10.1 - Influenza due to other identified influenza virus with other respiratory manifestations Status: Acute Plan: Likely had mild cold virus prior to current flu infection. We'll continue Tamiflu and supportive care. Possible early pneumonic infiltrate versus pneumonitis on chest x-ray. Overall feeling better and clinically improving. We'll continue current therapy. (2) Hypoxia ICD Codes: R09.02 - Hypoxemia Status: Acute Plan: responded well to supplemental oxygen via [place] Possible early infiltrative changes on CXR...possibly viral pneumonitis vs secondary pneumonia. Will monitor closely and have low threshold for initiating abx. Pt will be on Antiviral agent and steroid. Blood cltx negative from 03/20 and lactic acid wnl. Clinically improving. (3) Generalized weakness ICD Codes: R53.1 - Weakness Status: Acute Plan: Likely secondary to Flu and multiple comorbid conditions. Cautiously hydrate and have PT see pt (4) Afib ICD Codes: I48.91 - Unspecified atrial fibrillation Status: Chronic Plan: rate has been controlled. Pt on Eliquis. will eval dose of Eliquis. Drop in Hb may be a/w fluid administration at prior ER visit. Hemoglobin stable. (5) Cardiomyopathy ICD Codes: I42.9 - Cardiomyopathy, unspecified Status: Chronic Plan: EF 10-15% per Jan 2015 Echo. Pacer/defib device in place. BNP minimally elevated. No overt failure on exam. (6) Thrombocytopenia ICD Codes: D69.6 - Thrombocytopenia, unspecified Status: Chronic Plan: platelet count generally in 120-150 range. will monitor for signs of bleeding and follow CBC. Platelet count stable this morning. Discharge Planning We'll have physical therapy see the patient today. Possible discharge later this evening or more likely tomorrow morning. Jonathan Wolff MD PhD Mar 22, 2017 07:34
[2017-03-22] MEDS: BUMETANIDE 1 MG TAB PO SCH (08:32)
[2017-03-22] MEDS: PANTOPRAZOLE SOD 20 MG DELAYED RELEASE TAB PO SCH (08:33)
[2017-03-22] MEDS: CARVEDILOL 12.5 MG TAB PO SCH ×2 (08:33→21:24)
[2017-03-22] MEDS: APIXABAN 2.5 MG TABLET PO SCH ×2 (08:33→21:25)
[2017-03-22] MEDS: POTASSIUM CHLORIDE 20 MEQ CONTROLLED RELEASE TAB PO SCH (08:34)
[2017-03-22] MEDS: OSELTAMIVIR PHOSPHATE 75 MG CAP PO SCH ×2 (08:35→21:24)
[2017-03-23] VITALS: BP 144/98; PULSE 98; RESP 20; TEMP 96; O2SAT 98
[2017-03-23] MEDS: methylPREDNISolone SOD SUCC 40 MG/1 ML VIAL IV PUSH SCH (01:07)
[2017-03-23] MEDS: BENZONATATE 100 MG CAP PO PRN (01:11)
[2017-03-23 06:44] LABS: BICARBONATE 28.2 MEQ/L (21.0-32.0)
[2017-03-23 06:48] LABS: CREATININE 0.8 MG/DL (0.60-1.30)
--- NOTE | 2017-03-23 07:49 | HHI.PR ---
Subjective Remarks Feeling better today. Increase strength and able to ambulate without much dyspnea. Desires discharge home. No more fever. Objective Vitals Vital Signs Date Time Temp Pulse Resp B/P (MAP) Pulse Ox O2 Delivery O2 Flow Rate FiO2 03/23/17 00:00 96.0 98 20 144/98 (113) 98 03/22/17 20:00 96.0 94 20 170/81 (110) 97 03/22/17 19:15 78 03/22/17 16:00 92.1 93 18 162/88 (112) 98 03/22/17 12:00 98.0 88 18 128/78 (95) 95 03/22/17 08:29 95.9 84 17 155/93 (113) 96 GENERAL: No acute distress, alert and oriented. Sitting up on side of bed. Cooperative. SKIN: Warm and dry. AK versus early Scc on scalp. Multiple SKs on his back. HEAD: Normocephalic. EYES: No scleral icterus. No injection or drainage. NECK: Supple, trachea midline. No JVD or lymphadenopathy. CARDIOVASCULAR: Regular rate and rhythm without gallops or rubs. Distant heart sounds. No murmur appreciated this morning. RESPIRATORY: Breath sounds equal bilaterally. Occasional expiratory wheeze but good air movement. GASTROINTESTINAL: Abdomen soft, non-tender, nondistended. Bowel sounds normal. MUSCULOSKELETAL: No cyanosis. 1+ edema bilateral feet and distal lower extremities. BACK: No CVA tenderness. Result Diagram: 03/22/17 0550 03/23/17 0550 Imaging Last 72 hours Impressions Chest X-Ray 03/21/17 1128 Signed Impressions: Service Date/Time: Tuesday, March 21, 2017 11:34 - CONCLUSION: Compensated cardiomegaly with minimal parenchymal changes left base. Defibrillator Board Certified Radiologist. This report was verified electronically. Urinary Catheter: No Vascular Central Line Catheter: No A/P Problem List: (1) Influenza A ICD Codes: J10.1 - Influenza due to other identified influenza virus with other respiratory manifestations Status: Acute Plan: Likely had mild cold virus prior to current flu infection. We'll continue Tamiflu and supportive care. Possible early pneumonic infiltrate versus pneumonitis on chest x-ray. Overall feeling better and clinically improving. We'll continue current therapy and discharge home later today. I've advised patient that his will need prophylactic Tamiflu as well and that he should contact her primary care physician regarding this. (2) Hypoxia ICD Codes: R09.02 - Hypoxemia Status: Acute Plan: responded well to supplemental oxygen via [place] Possible early infiltrative changes on CXR...possibly viral pneumonitis vs secondary pneumonia. Clinically improved. Will finish his Tamiflu and provide oral prednisone (3) Generalized weakness ICD Codes: R53.1 - Weakness Status: Acute Plan: Likely secondary to Flu and multiple comorbid conditions. Cautiously hydrate and have PT see pt (4) Afib ICD Codes: I48.91 - Unspecified atrial fibrillation Status: Chronic Plan: rate has been controlled. Pt on Eliquis. will eval dose of Eliquis. Drop in Hb may be a/w fluid administration at prior ER visit. Hemoglobin stable. (5) Cardiomyopathy ICD Codes: I42.9 - Cardiomyopathy, unspecified Status: Chronic Plan: EF 10-15% per Jan 2015 Echo. Pacer/defib device in place. BNP minimally elevated. No overt failure on exam. (6) Thrombocytopenia ICD Codes: D69.6 - Thrombocytopenia, unspecified Status: Chronic Plan: platelet count generally in 120-150 range. will monitor for signs of bleeding and follow CBC. Platelet count stable this morning. Discharge Planning Discharge home later today. Jonathan Wolff MD PhD Mar 23, 2017 07:49
[2017-03-23] MEDS ORDERED: PRED20 PO (07:54)
[2017-03-23] MEDS ORDERED: APIX5TAB PO (07:54)
[2017-03-23] MEDS ORDERED: OSEL75 PO (07:54)
--- NOTE | 2017-03-23 07:56 | HHI.DS ---
Discharge Summary Admission Date Mar 21, 2017 at 12:36 Discharge Date: Mar 23, 2017 Admitting Diagnosis influenza A, generalized weakness, hypoxia (1) Influenza A Diagnosis: Principal ICD Codes: J10.1 - Influenza due to other identified influenza virus with other respiratory manifestations Status: Acute (2) Hypoxia Diagnosis: Principal ICD Codes: R09.02 - Hypoxemia Status: Acute (3) Generalized weakness Diagnosis: Principal ICD Codes: R53.1 - Weakness Status: Acute (4) Afib Diagnosis: Secondary ICD Codes: I48.91 - Unspecified atrial fibrillation Status: Chronic (5) Cardiomyopathy Diagnosis: Secondary ICD Codes: I42.9 - Cardiomyopathy, unspecified Status: Chronic (6) Thrombocytopenia Diagnosis: Secondary ICD Codes: D69.6 - Thrombocytopenia, unspecified Status: Chronic Brief History 81-year-old male with history of hypertension, hypercholesterolemia, CHF, A. fib , who was seen in the emergency department yesterday for upper respiratory symptoms and diagnosed with a viral syndrome, returns today for evaluation of generalized weakness, leg weakness, cough, and generalized malaise with subjective fever. Symptoms have been going on for a couple of days, worse today. He reports that he had some mild cold-like symptoms for approximately one week, but over the last 2 days has developed more chills and subjective fever with increased weakness at home. He denies unilateral weakness. No chest pain or increased dyspnea, but has chronic dyspnea on exertion due to his cardiomyopathy. No abdominal pain. States that he tried to get out of his chair today and fell to the ground. He did not hit his head or injure himself during this fall. No loss of consciousness. He has been having a cough productive of yellowish sputum. No hemoptysis. He had one episode of vomiting yesterday but no coffee ground emesis. No diarrhea. He was reevaluated today in the ER and noted to have some subtle changes in the left lower lung field on x-ray and positive influenza A test. He is a relatively large man and his with whom he lives is quite petite. He reports that he is generally independent of ADLs despite his significant cardiomyopathy, but over the last 2 days become too weak to ambulate around the home without any assistance. CBC/BMP: 03/22/17 0550 03/23/17 0550 Significant Findings Laboratory Tests Test 03/21/17 11:40 03/21/17 16:45 03/22/17 05:50 03/23/17 05:50 Red Blood Count 4.16 MIL/MM3 (4.50-5.90) 4.11 MIL/MM3 (4.50-5.90) Hemoglobin 11.8 GM/DL (13.0-17.0) 11.9 GM/DL (13.0-17.0) Hematocrit 37.0 % (39.0-51.0) 37.5 % (39.0-51.0) Mean Corpuscular Hemoglobin Concent 31.9 % (32.0-36.0) 31.8 % (32.0-36.0) Platelet Count 88 TH/MM3 (150-450) 87 TH/MM3 (150-450) Neutrophils (%) (Auto) 79.2 % (16.0-70.0) 89.5 % (16.0-70.0) Lymphocytes (%) (Auto) 4.4 % (9.0-44.0) 5.5 % (9.0-44.0) Monocytes (%) (Auto) 13.3 % (0.0-8.0) Basophils (%) (Auto) 3.1 % (0.0-2.0) Lymphocytes # (Auto) 0.4 TH/MM3 (1.0-4.8) 0.6 TH/MM3 (1.0-4.8) Monocytes # (Auto) 1.2 TH/MM3 (0-0.9) Basophils # (Auto) 0.3 TH/MM3 (0-0.2) Platelet Estimate LOW (NORMAL) Prothrombin Time 11.7 SEC (9.8-11.6) Blood Urea Nitrogen 25 MG/DL (7-18) 27 MG/DL (7-18) 33 MG/DL (7-18) Random Glucose 110 MG/DL (74-106) 125 MG/DL (74-106) 135 MG/DL (74-106) Albumin 3.1 GM/DL (3.4-5.0) 3.1 GM/DL (3.4-5.0) Calcium Level 7.5 MG/DL (8.5-10.1) 7.7 MG/DL (8.5-10.1) 8.0 MG/DL (8.5-10.1) Estimat Glomerular Filtration Rate 64 ML/MIN (>89) 82 ML/MIN (>89) B-Type Natriuretic Peptide 537 PG/ML (0-100) Urine Protein 30 mg/dL (NEG-TRACE) Urine Ketones TRACE mg/dL (NEG) Urine Sperm OCC (NONE) Neutrophils # (Auto) 9.4 TH/MM3 (1.8-7.7) Imaging Last Impressions Chest X-Ray 03/21/17 1128 Signed Impressions: Service Date/Time: Tuesday, March 21, 2017 11:34 - CONCLUSION: Compensated cardiomegaly with minimal parenchymal changes left base. Defibrillator Board Certified Radiologist. This report was verified electronically. MD Hospital Course Patient admitted for fever and positive influenza a testing with increased weakness and apparent fall at home. He was given gentle IV hydration as well as IV steroids and Tamiflu. Patient progressed well and regained her strength. He was able to be weaned off supplemental oxygen and did well on walk test. He will finish his Tamiflu and a few days of prednisone as an outpatient. I've advised him to let his no that she will need Tamiflu prophylaxis. Pt Condition on Discharge: Stable Discharge Disposition: Discharge Home Discharge Instructions DIET: Follow Instructions for: Heart Healthy Diet Activities you can perform: Weight Bearing as Kal Other Activity Instructions: Start physical activity slowly and advance as tolerated. Use assistive device that you have at home, walker Follow up Referrals: PCP Follow-up New Medications: Apixaban (Eliquis) 5 Mg Tab 5 MG PO BID for Blood Clot Prevention, #60 TAB 0 Refills Prednisone (Prednisone) 20 Mg Tab 20 MG PO DAILY for bronchospasm, #5 TAB 0 Refills Oseltamivir (Tamiflu) 75 Mg Cap 75 MG PO BID for influenza, #6 CAP Continued Medications: Benzonatate (Benzonatate) 100 Mg Cap 100 MG PO TID PRN for COUGH, CAP 0 Refills Bumetanide (Bumetanide) 2 Mg Tab 2 MG PO DAILY, TAB 0 Refills Carvedilol (Carvedilol) 12.5 Mg Tab 12.5 MG PO BID, #60 TAB 0 Refills Losartan (Losartan) 50 Mg Tab 50 MG PO DAILY for Blood Pressure Management, #30 TAB 0 Refills Omeprazole (Omeprazole) 20 Mg Tab 20 MG PO DAILY, #30 TAB 0 Refills Discontinued Medications: Furosemide (Lasix) 40 Mg Tab 40 MG PO DAILY, #30 TAB 0 Refills Hydrocodone-Chlorpheniramine 12 HR Liq (Tussionex Pennkinetic Ext 12 HR Liq) 10- 8 Mg/5 Ml Susp 5 ML PO Q12H PRN for COUGH AND/OR COLD SYMPTOMS, #60 ML 0 Refills Pseudoephedrine ER 12 HR (Pseudoephedrine ER 12 HR) 120 Mg Tab 120 MG PO BID for Decongestant, #60 TAB 0 Refills Jonathan Wolff MD PhD Mar 23, 2017 07:56
[2017-03-23 08:00] VITALS: BP 163/96; PULSE 88; RESP 16; TEMP 96.1; O2SAT 97
[2017-03-23] MEDS: BUMETANIDE 1 MG TAB PO SCH (08:35)
[2017-03-23] MEDS: POTASSIUM CHLORIDE 20 MEQ CONTROLLED RELEASE TAB PO SCH (08:35)
[2017-03-23] MEDS: OSELTAMIVIR PHOSPHATE 75 MG CAP PO SCH (08:36)
[2017-03-23] MEDS: APIXABAN 2.5 MG TABLET PO SCH (08:36)
[2017-03-23] MEDS: PANTOPRAZOLE SOD 20 MG DELAYED RELEASE TAB PO SCH (08:36)
[2017-03-23] MEDS: CARVEDILOL 12.5 MG TAB PO SCH (08:36)
== END 2017-03-23 09:07 | disposition home or self-care (01) ==
LOC: PHED 11:26 → INTOOBSV 12:36 → PHEDA 12:36 → PH3B 14:06
PROVIDERS: ADMIT Family Medicine; ATTEND Family Medicine
DX: J10.1 Influenza due to other identified influenza virus with other respiratory manifestations (principal); R09.02 Hypoxemia; R53.1 Weakness; I48.91 Unspecified atrial fibrillation; I42.9 Cardiomyopathy, unspecified; D69.6 Thrombocytopenia, unspecified; I50.9 Heart failure, unspecified; I11.0 Hypertensive heart disease with heart failure; E78.00 Pure hypercholesterolemia, unspecified; Z79.01 Long term (current) use of anticoagulants; Z95.0 Presence of cardiac pacemaker; Z86.74 Personal history of sudden cardiac arrest; K21.9 Gastro-esophageal reflux disease without esophagitis; M54.9 Dorsalgia, unspecified; M19.90 Unspecified osteoarthritis, unspecified site; Z79.899 Other long term (current) drug therapy; R06.09 Other forms of dyspnea; W19.XXXA Unspecified fall, initial encounter; R11.10 Vomiting, unspecified; I27.20 Pulmonary hypertension, unspecified; Z87.891 Personal history of nicotine dependence
CPT/HCPCS: 71010; 80048; 80053; 81001; 83605; 83880; 85025; 85610; 85730; 87040; 87804; 94640; 94664; 96361; 96374; 96376; 97162; 99285; G0378; G8987; G8988; J2920; J2930; J3480